=== PATIENT | male | born 1990 | race Caucasian/White ===

== ENCOUNTER 2017-10-11 15:48 | Observation (INO) | payer BC, OTHER ==
--- NOTE | 2017-10-11 16:07 | PDOC ---
Rapid Medical Evaluation Chief Complaint: Pain Time Seen by Provider: 10/11/17 16:04 Medical Evaluation: Allergies Allergy/AdvReac Type Severity Reaction Status Date / Time No Known Allergies Allergy Verified 10/11/17 15:52 Vital Signs Temp Pulse Resp BP Pulse Ox 98.0 F 105 H 18 147/92 100 10/11/17 15:53 10/11/17 15:53 10/11/17 15:53 10/11/17 15:53 10/11/17 15:53 10/11/17 16:05 Pt arrives with complaints of: rt abd pain x 2 days On exam : rt upper quadrant, no rt cva tenderness I have ordered : ua, u cx, cbc, comp , lipase Pt will go to : main ED Discharge Disposition - Diagnosis Right lateral abdominal pain - Referrals - Patient Instructions - Post Discharge Activity
--- NOTE | 2017-10-11 16:15 | PDOC ---
History of Present Illness - General Chief Complaint: Pain Stated Complaint: PAIN Time Seen by Provider: 10/11/17 16:04 - History of Present Illness Initial Comments: 10/11/17 16:34 27yo obese young man who presents with acute onset stabbing, non-radiating RLQ pain that was 8/10 severity earlier this AM, now 4/10. He was USOH, when last night he started to have some RLQ pain, 2/10 severity. This morning his pain was more severe, which was worse with movement and coughing. Denies nausea, vomiting, and was able to eat lunch. Food did not exacerbate or alleviate his pain. Denies any prior episodes. He had an appendectomy when he was 6 years old. No h/o kidney stones. Last BM was this morning, denies hematochezia or BRBPR. Denies fever or chills. 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 Denies heavy EtOH use (drinks only on social occasions). He is an active smoker (2-3cigarettes per day for the past 6 years). Denies drug use. 10/11/17 17:00 Past History - Past Medical History Allergies/Adverse Reactions: Allergies Allergy/AdvReac Type Severity Reaction Status Date / Time No Known Allergies Allergy Verified 10/11/17 15:52 Home Medications: Ambulatory Orders NK [No Known Home Medication] 10/11/17 COPD: No - Surgical History Appendectomy: Yes - Suicide/Smoking/Psychosocial Hx Smoking History: Never smoked Have you smoked in the past 12 months: Yes Number of Cigarettes Smoked Daily: 3 Information on smoking cessation initiated: Yes 'Breaking Loose' booklet given: 10/11/17 Hx Alcohol Use: No Drug/Substance Use Hx: No Substance Use Type: None *Physical Exam - Vital Signs Last Vital Signs Temp Pulse Resp BP Pulse Ox 98.0 F 105 H 18 147/92 100 10/11/17 15:53 10/11/17 15:53 10/11/17 15:53 10/11/17 15:53 10/11/17 15:53 - Physical Exam General Appearance: Yes: Nourished, Appropriately Dressed Respiratory/Chest: positive: Lungs Clear, Normal Breath Sounds Cardiovascular: positive: Regular Rhythm, Regular Rate Gastrointestinal/Abdominal: positive: Normal Bowel Sounds, Soft, Protuberent, Tenderness (RLQ), Other ((-) Tran's) Male Genitalia: positive: normal genitalia, CVAT ((-) CVA tenderness bilaterally , (-) suprapubic tenderness), other ED Treatment Course - LABORATORY CBC & Chemistry Diagram: 10/11/17 16:28 10/11/17 16:28 Medical Decision Making - Medical Decision Making 10/11/17 17:10 Labs pending: UA, CBC, CMP Imaging: CT abdomen/pelvis w/o contrast for r/o renal pathology, including nephrolithiasis or focal inflammation/adhesion at prior appendectomy site., CBC, BMP 10/11/17 16:28 10/11/17 16:28 Urine Test Results Urine Color Yellow 10/11/17 16:28 Urine Appearance Clear 10/11/17 16:28 Urine pH 6.0 (5.0-8.0) 10/11/17 16:28 Ur Specific [place] 1.021 (1.001-1.035) 10/11/17 16:28 Urine Protein Negative (NEGATIVE) 10/11/17 16:28 Urine Glucose (UA) Negative (NEGATIVE) 10/11/17 16:28 Urine Ketones Negative (NEGATIVE) 10/11/17 16:28 Urine Blood Negative (NEGATIVE) 10/11/17 16:28 Urine Nitrite Negative (NEGATIVE) 10/11/17 16:28 Urine Bilirubin Negative (NEGATIVE) 10/11/17 16:28 CT abdomen/pelvis w/o pending. Patient Signed-out to evening resident, Dr. Brown. *DC/Admit/Observation/Transfer Diagnosis at time of Disposition: Right lateral abdominal pain - Referrals Referrals: Dominog Garcia MD [Primary Care Provider] - - Patient Instructions - Post Discharge Activity
[2017-10-11 16:58] LABS: URINE APPEARANCE CLEAR; URINE BILIRUBIN NEGATIVE (NEGATIVE); URINE BLOOD NEGATIVE (NEGATIVE); URINE COLOR YELLOW; URINE GLUCOSE (UA) NEGATIVE (NEGATIVE); URINE KETONE NEGATIVE (NEGATIVE); URINE NITRITE NEGATIVE (NEGATIVE); URINE PROTEIN NEGATIVE (NEGATIVE); URINE UROBILINOGEN 4.0 E.U/dl mg/dL (0.2-1.0)
[2017-10-11 17:00] LABS: BASOPHIL 0.5 % (0-2.0); EOSINOPHIL 1.9 % (0-4.5); MCH 29.3 pg (25.7-33.7); MCHC 34.2 g/dl (32.0-35.9); MEAN CELL VOLUME 85.7 fl (80-96); MEAN PLT VOLUME 7.9 fl (7.5-11.1); NEUTROPHILS 64.7 % (42.8-82.8); PLATELET COUNT 266 K/MM3 (134-434); RDW 12.7 % (11.9-15.9); WHITE BLOOD COUNT 9.8 K/mm3 (4.0-10.0)
[2017-10-11 17:14] LABS: ALBUMIN 4.1 g/dl (3.4-5.0); ALK PHOS 82 U/L (45-117); ANION GAP 7 (8-16); BILIRUBIN,TOTAL 0.6 mg/dL (0.2-1.0); CALCIUM 9.3 mg/dL (8.5-10.1); CO2 27 mmol/L (21-32); CREATININE 0.7 mg/dL (0.7-1.3); GLUCOSE,RANDOM 111 mg/dL (74-106); SGOT/AST 112 U/L (15-37); SGPT/ALT 203 U/L (12-78); TOT PROT 8.1 g/dl (6.4-8.2)
--- NOTE | 2017-10-11 17:19 | PDOC ---
Attending Attestation - HPI HPI: 10/11/17 18:09 The patient is a 27 year old male with a significant PMH of everyday cigarette use who presents to the emergency department with localized RLQ abdominal pain beginning approximately last night. The patient reports the abdominal pain is a stabbing sensation, at a 2/10 last night which has worsened to an 8/10 in severity this morning. The patient denies any prior or family history of gallstones or GI issues. PCP: Dr. Garcia - Physicial Exam PE: 10/11/17 18:09 Vitals: Triage Vital signs reviewed General Appearance: no acute distress, well nourished well developed, Chest Wall: Nontender Cardiac: Regular rate and rhythm, no murmurs, no rubs, no gallops, Lungs: Clear to auscultation bilateral, good air movement bilaterally, Abdomen: (+) RLQ tenderness to palpation. (+) Mild rebound. Soft, nondistended, normal bowel sounds, Extremities: Full range of motion to all extremities, no cyanosis, clubbing, or edema Genital: Normal exam. Skin: Warm and dry, no rashes or lesions, no petechiae Neuro: AOX3; Cranial Nerves 2-12 grossly intact, Strength intact to all extremities, Sensation intact to all extremities, gait normal Psych: normal mood, normal affect <Hector Parra - Last Filed: 10/11/17 18:09> - Resident Resident Name: DanielHannah - ED Attending Attestation I have performed the following: I have examined & evaluated the patient, The case was reviewed & discussed with the resident, I agree w/resident's findings & plan, Exceptions are as noted - Medical Decision Making 10/11/17 17:38 27 years old with right lower quadrant pain past medical history significant for appendicectomy Given the location of pain we'll CT noncontrast labs pain meds and reassess Dr. Edwards to F/U ct and reassess 10/11/17 19:11 <Jae Silva - Last Filed: 10/11/17 19:12>
[2017-10-11] MEDS ORDERED: KETOROLAC TROMETHAMINE 30 MG/1 ML VIAL IVPUSH ONE (17:38)
[2017-10-11] MEDS ORDERED: SODIUM CHLORIDE 0.9% 1000 ML INFUS.BAG IV ONE (17:38)
[2017-10-11] MEDS ORDERED: KETOROLAC TROMETHAMINE 30 MG/1 ML VIAL ONE (17:48)
--- NOTE | 2017-10-11 20:09 | PDOC ---
*Physical Exam - Vital Signs 27 YOM who p/w acute RLQ pain. S/P appendectomy 20 years ago. Afebrile, RLQ ttp , no CVA ttpno elevation in WBC, considering inflammation of appendiceal remnant vs. nephrolithiasis vs. gas pains. Awaiting results of CT abdomen/ pelvis. Last Vital Signs Temp Pulse Resp BP Pulse Ox 98.0 F 105 H 18 147/92 100 10/11/17 15:53 10/11/17 15:53 10/11/17 15:53 10/11/17 15:53 10/11/17 15:53 - Physical Exam General Appearance: Yes: Nourished, Appropriately Dressed, Obese, Other ( pleasant with large group of family and friends at bedside). No: Apparent Distress HEENT: positive: EOMI, MC, Normal Voice, Hearing Grossly Normal. negative: Scleral Icterus (R), Scleral Icterus (L), Nasal Congestion Neck: positive: Trachea midline, Supple. negative: Tender, Rigid Respiratory/Chest: positive: Lungs Clear, Normal Breath Sounds. negative: Respiratory Distress, Crackles, Rhonchi, Stridor, Wheezing Cardiovascular: positive: Regular Rhythm, Regular Rate. negative: Murmur Gastrointestinal/Abdominal: positive: Normal Bowel Sounds, Tender (mild tenderness to palpation to RLQ at Tran's point, negative Rovsing sign), Soft. negative: Organomegaly, Pulsatile Mass, Guarding Musculoskeletal: positive: Normal Inspection, Other (no tenderness to palpation along the iliac crest posteriorly, laterally, and at ASIS or AIIS). negative: CVA Tenderness, Decreased Range of Motion, Vertebral Tenderness Extremity: positive: Normal Capillary Refill, Normal Inspection, Normal Range of Motion. negative: Tender, Cyanosis Integumentary: positive: Normal Color, Dry, Warm. negative: Erythema, Rash, Bruising Neurologic: positive: fourdrinier tender II-XII NML intact (grossly), Fully Oriented, Alert, Normal Mood/Affect, Normal Response, Motor Strength / ED Treatment Course - LABORATORY CBC & Chemistry Diagram: 10/11/17 16:28 10/11/17 16:28 - ADDITIONAL ORDERS Additional order review: Laboratory Results 10/11/17 10/11/17 16:28 16:28 Sodium 137 Potassium 4.2 Chloride 103 Carbon Dioxide 27 Anion Gap 7 L BUN 14 Creatinine 0.7 Creat Clearance w eGFR > 60 Random Glucose 111 H Calcium 9.3 Total Bilirubin 0.6 AST 112 H ALT 203 H Alkaline Phosphatase 82 Total Protein 8.1 Albumin 4.1 Lipase 117 Urine Color Yellow Urine Appearance Clear Urine pH 6.0 Ur Specific [place] 1.021 Urine Protein Negative Urine Glucose (UA) Negative Urine Ketones Negative Urine Blood Negative Urine Nitrite Negative Urine Bilirubin Negative Urine Urobilinogen 4.0 e.u/dl 10/11/17 16:28 RBC 5.29 MCV 85.7 MCHC 34.2 RDW 12.7 MPV 7.9 Neutrophils % 64.7 Lymphocytes % 25.9 Monocytes % 7.0 Eosinophils % 1.9 Basophils % 0.5 - Medications Given in the ED: ED Medications Discontinued Medications Generic Name Dose Route Start Last Admin Trade Name Gail PRN Reason Stop Dose Admin Ketorolac Tromethamine 30 mg 10/11/17 17:38 10/11/17 18:09 Toradol Injection - IVPUSH 10/11/17 17:39 30 mg ONCE ONE Administration Sodium Chloride 1,000 ml 10/11/17 17:38 10/11/17 18:09 Normal Saline - IV 10/11/17 17:39 1,000 ml ONCE ONE Administration Medical Decision Making - Medical Decision Making 27 YOM with h/o distant appendectomy p/w RLQ pain. On CT abdomen/pelvis the only notable finding is hypodense 2x2x1.3cm lesion in right lilac bone. Radiology read with recommendation to further characterize lesion with MRI if patient is symptomatic. Patient re-examined with unchanged RLQ ttp, no CVA ttp, no vertebral ttp or right iliac crest ttp. Patient reluctant but ultimately agreeable to admission for further workup and MRI. Admission procedures carried out by Dr. Orosco per his documentation. *DC/Admit/Observation/Transfer Diagnosis at time of Disposition: RLQ abdominal pain - Referrals Referrals: Domingo Garcia MD [Primary Care Provider] - - Patient Instructions - Post Discharge Activity
[2017-10-11 20:26] LABS: URINE LEUK ESTERASE Negative (NEGATIVE)
--- NOTE | 2017-10-11 21:13 | PDOC ---
*Physical Exam - Vital Signs Last Vital Signs Temp Pulse Resp BP Pulse Ox 98.0 F 105 H 18 147/92 100 10/11/17 15:53 10/11/17 15:53 10/11/17 15:53 10/11/17 15:53 10/11/17 15:53 ED Treatment Course - LABORATORY CBC & Chemistry Diagram: 10/11/17 16:28 10/11/17 16:28 - ADDITIONAL ORDERS Additional order review: Laboratory Results 10/11/17 10/11/17 16:28 16:28 Sodium 137 Potassium 4.2 Chloride 103 Carbon Dioxide 27 Anion Gap 7 L BUN 14 Creatinine 0.7 Creat Clearance w eGFR > 60 Random Glucose 111 H Calcium 9.3 Total Bilirubin 0.6 AST 112 H ALT 203 H Alkaline Phosphatase 82 Total Protein 8.1 Albumin 4.1 Lipase 117 Urine Color Yellow Urine Appearance Clear Urine pH 6.0 Ur Specific [place] 1.021 Urine Protein Negative Urine Glucose (UA) Negative Urine Ketones Negative Urine Blood Negative Urine Nitrite Negative Urine Bilirubin Negative Urine Urobilinogen 4.0 e.u/dl Ur Leukocyte Esterase Negative 10/11/17 16:28 RBC 5.29 MCV 85.7 MCHC 34.2 RDW 12.7 MPV 7.9 Neutrophils % 64.7 Lymphocytes % 25.9 Monocytes % 7.0 Eosinophils % 1.9 Basophils % 0.5 - Medications Given in the ED: ED Medications Discontinued Medications Generic Name Dose Route Start Last Admin Trade Name Freq PRN Reason Stop Dose Admin Ketorolac Tromethamine 30 mg 10/11/17 17:38 10/11/17 18:09 Toradol Injection - IVPUSH 10/11/17 17:39 30 mg ONCE ONE Administration Sodium Chloride 1,000 ml 10/11/17 17:38 10/11/17 18:09 Normal Saline - IV 10/11/17 17:39 1,000 ml ONCE ONE Administration Medical Decision Making - Medical Decision Making 10/11/17 21:08 Pt still having pain to the right lower abdominal region. Pt s/p appy many years ago. Ct scan is shows a hypodensity to the right posterior iliac bone. MR is recommended. *DC/Admit/Observation/Transfer Diagnosis at time of Disposition: RLQ abdominal pain - Discharge Dispostion Condition at time of disposition: Stable Admit: Yes - Referrals Referrals: Domingo Garcia MD [Primary Care Provider] - - Patient Instructions - Post Discharge Activity
[2017-10-11] MEDS ORDERED: ACETAMINOPHEN 325 MG TABLET (FP) PO PRN (23:07)
[2017-10-11] MEDS: D5-1/2NS+20 MEQ KCL - 20 MEQ/1,000 ML INFUS.BAG IV SCH (23:31)
[2017-10-12 02:10] VITALS: BMI 39.2
[2017-10-12 07:29] LABS: BASOPHIL 0.5 % (0-2.0); EOSINOPHIL 2.6 % (0-4.5); MCH 29.5 pg (25.7-33.7); MCHC 34.4 g/dl (32.0-35.9); MEAN CELL VOLUME 85.9 fl (80-96); MEAN PLT VOLUME 7.9 fl (7.5-11.1); NEUTROPHILS 67.2 % (42.8-82.8); PLATELET COUNT 234 K/MM3 (134-434); RDW 12.7 % (11.9-15.9); WHITE BLOOD COUNT 9.2 K/mm3 (4.0-10.0)
[2017-10-12 07:55] LABS: CALCIUM 9.1 mg/dL (8.5-10.1)
[2017-10-12 08:01] LABS: ALBUMIN 3.5 g/dl (3.4-5.0); ALK PHOS 68 U/L (45-117); ANION GAP 5 (8-16); CO2 28 mmol/L (21-32); CREATININE 0.8 mg/dL (0.7-1.3); GLUCOSE,RANDOM 106 mg/dL (74-106); SGOT/AST 93 U/L (15-37); SGPT/ALT 178 U/L (12-78); TOT PROT 6.9 g/dl (6.4-8.2)
[2017-10-12] MEDS ORDERED: PANTOPRAZOLE 40 MG TABLET (FP) PO SCH (10:00)
--- NOTE | 2017-10-12 10:03 | CONSULT ---
Consult - text type - Consultation Consultation Note: FULL CONSULT DICTATED IMP: BENIGN LESION RIGHT ILIAC BONE UNRELATED TO CURRENT RLQ PAIN. WE CAN FOLLOW THIS LESION AN OUT PATIENT
--- NOTE | 2017-10-12 10:06 | HP ---
Admitting History and Physical - Admission History of Present Illness: 27 year old male with a significant PMH of everyday cigarette use who presents to the emergency department with localized RLQ abdominal pain beginning approximately last night. The patient reports the abdominal pain is a stabbing sensation, at a 2/10 last night which has worsened to an 8/10 in severity this morning. The patient denies any prior or family history of gallstones or GI issues. - Past Medical History Cardiovascular: No: HTN, Hyperlipdemia Pulmonary: No: Asthma, COPD Gastrointestinal: No: Constipation Heme/Onc: No: Anemia - Past Surgical History Past Surgical History: Yes: Appendectomy - Smoking History Smoking history: Current every day smoker Have you smoked in the past 12 months: Yes Aproximately how many cigarettes per day: 3 - Alcohol/Substance Use Hx Alcohol Use: No Home Medications - Allergies Allergies/Adverse Reactions: Allergies Allergy/AdvReac Type Severity Reaction Status Date / Time No Known Allergies Allergy Verified 10/11/17 15:52 - Home Medications Home Medications: Ambulatory Orders NK [No Known Home Medication] 10/11/17 Review of Systems - Review of Systems Cardiovascular: denies: Chest Pain Respiratory: denies: SOB Gastrointestinal: reports: Abdominal Pain (rlq) Physical Examination Vital Signs: Vital Signs Temperature 98 F 10/12/17 06:29 Pulse Rate 88 10/12/17 06:29 Respiratory Rate 22 10/12/17 06:29 Blood Pressure 141/86 10/12/17 06:29 O2 Sat by Pulse Oximetry (%) 100 10/12/17 02:18 Cardiovascular: Yes: Regular Rate and Rhythm Respiratory: Yes: Regular, CTA Bilaterally Gastrointestinal: Yes: Normal Bowel Sounds, Soft. No: Tenderness Edema: No Labs: CBC, BMP 10/12/17 06:30 10/12/17 06:30 Problem List - Problems (1) Elevated liver enzymes Assessment/Plan: w/u ordered gi consult surgical consult Code(s): R74.8 - ABNORMAL LEVELS OF OTHER SERUM ENZYMES (2) RLQ abdominal pain Code(s): R10.31 - RIGHT LOWER QUADRANT PAIN (3) Bone anomaly Assessment/Plan: mri of pelvis Code(s): M95.9 - ACQUIRED DEFORMITY OF MUSCULOSKELETAL SYSTEM, UNSPECIFIED
--- NOTE | 2017-10-12 11:23 | CONS ---
DATE OF CONSULTATION: DATE OF DICTATION: 10/12/2017 ORTHOPEDIC CONSULTATION/HEALTH SYSTEM Patient is a 27-year-old male admitted with right lower quadrant abdominal pain and discomfort for the past few days. Patient has had a previous appendectomy. During the patients workup, an abdominal CT scan was performed which showed a benign-looking hypointense lesion in the right posterior iliac wing, and thus necessitated orthopedic consultation. Patient denies any previous trauma or any problems in that region. PHYSICAL EXAMINATION: He does have significant tenderness in the right lower quadrant. He has good range of motion in the ankles and toes, able to walk with no pain, no complaints, no tenderness along his greater trochanter, pubis, ileum, SI joint, sacrum, no limb-length discrepancy, and otherwise neurovascularly intact. X-rays and CT scan were as described in the history. IMPRESSION: Probable benign lesion in his right iliac, posterior iliac wing, which I believe is unrelated to his current situation of right lower quadrant pain. The medical work up the right lower quadrant pain and treat that appropriately. As far as the iliac wing, patient can be discharged when medically cleared. We can follow this lesion up with an MRI and serial x-rays as an outpatient upon discharge. JANETTE GUILLAUME M.D. [id number]
--- NOTE | 2017-10-12 11:42 | CON.GI ---
Consult Consult Specialty:: GI Referred by:: Dr. Garcia Reason for Consultation:: RLQ pain, elevated enzymes - History of Present Illness History of Present Illness: A 27 yom with 2 days of RLQ, stabbing pain of acute onset, unrelated to diet, activity. Appendectomy 20 y. ago. No associated fiver, chills, nausea, vomiting , dysphagia, odynophagia, GERD, dyspepsia, changes on bowels, melena, hematochezia, hematemesis, weight loss. No prior GI issues. No family history of IBD, early colorectal cancer, polyps. CT abdomen/pelvis negative for GI pathology. A bone lesion was noted and addressed (see chart). - History Source History Provided By: Patient, Medical Record - Past Surgical History Past Surgical History: Yes: Appendectomy - Alcohol/Substance Use Hx Alcohol Use: No - Smoking History Smoking history: Current every day smoker Have you smoked in the past 12 months: Yes Aproximately how many cigarettes per day: 3 Home Medications - Allergies Allergies/Adverse Reactions: Allergies Allergy/AdvReac Type Severity Reaction Status Date / Time No Known Allergies Allergy Verified 10/11/17 15:52 - Home Medications Home Medications: Ambulatory Orders NK [No Known Home Medication] 10/11/17 Family Disease History - Family Disease History Family History: Unremarkable Review of Systems Findings/Remarks: please refer to H&P Physical Exam-GI Vital Signs: Vital Signs Temperature 98 F 10/12/17 06:29 Pulse Rate 88 10/12/17 06:29 Respiratory Rate 22 10/12/17 09:00 Blood Pressure 141/86 10/12/17 06:29 O2 Sat by Pulse Oximetry (%) 100 10/12/17 09:00 Constitutional: Yes: Well Nourished, No Distress, Calm, Obese Eyes: Yes: Conjunctiva Clear HENT: Yes: Atraumatic Neck: Yes: Supple Cardiovascular: Yes: Regular Rate and Rhythm Respiratory: Yes: Regular ...Auscultate: Yes: Normoactive Bowel Sounds ...Palpate: Yes: Tenderness (RLQ). No: Firm/Rigid, Guarding, Tenderness, Epigastium, Tenderness, Rebound Integumentary: No: Jaundice Neurological: Yes: Alert, Oriented Labs: CBC, BMP 10/12/17 06:30 10/12/17 06:30 Laboratory Results - last 24 hr 10/11/17 10/11/17 10/11/17 16:28 16:28 16:28 WBC 9.8 RBC 5.29 Hgb 15.5 Hct 45.4 MCV 85.7 MCH 29.3 MCHC 34.2 RDW 12.7 Plt Count 266 MPV 7.9 Neutrophils % 64.7 Lymphocytes % 25.9 Monocytes % 7.0 Eosinophils % 1.9 Basophils % 0.5 Sodium 137 Potassium 4.2 Chloride 103 Carbon Dioxide 27 Anion Gap 7 L BUN 14 Creatinine 0.7 Creat Clearance w eGFR > 60 Random Glucose 111 H Calcium 9.3 Ferritin Total Bilirubin 0.6 AST 112 H ALT 203 H Alkaline Phosphatase 82 Total Protein 8.1 Albumin 4.1 Lipase 117 Urine Color Yellow Urine Appearance Clear Urine pH 6.0 Ur Specific [place] 1.021 Urine Protein Negative Urine Glucose (UA) Negative Urine Ketones Negative Urine Blood Negative Urine Nitrite Negative Urine Bilirubin Negative Urine Urobilinogen 4.0 e.u/dl Ur Leukocyte Esterase Negative 10/12/17 10/12/17 10/12/17 01:20 06:30 06:30 WBC 9.2 RBC 4.84 Hgb 14.3 Hct 41.6 MCV 85.9 MCH 29.5 MCHC 34.4 RDW 12.7 Plt Count 234 MPV 7.9 Neutrophils % 67.2 Lymphocytes % 21.3 Monocytes % 8.4 Eosinophils % 2.6 Basophils % 0.5 Sodium 138 Potassium 4.2 Chloride 105 Carbon Dioxide 28 Anion Gap 5 L BUN 14 Creatinine 0.8 Creat Clearance w eGFR > 60 Random Glucose 106 Calcium 9.1 Ferritin 339.593 H Total Bilirubin 1.0 D AST 93 H ALT 178 H Alkaline Phosphatase 68 Total Protein 6.9 Albumin 3.5 Lipase Urine Color Urine Appearance Urine pH Ur Specific [place] Urine Protein Urine Glucose (UA) Urine Ketones Urine Blood Urine Nitrite Urine Bilirubin Urine Urobilinogen Ur Leukocyte Esterase Imaging - Results Cat Scan: Report Reviewed Problem List - Problems (1) Elevated liver enzymes Code(s): R74.8 - ABNORMAL LEVELS OF OTHER SERUM ENZYMES Assessment/Plan Acute onset. RLQ pain and tenderness with normal CT w/o contrast. Unrelated to physical activity, diet. No obvious, overt signs of infection, inflammation. Doubt IBD, infection, inflammation. Elevated transaminases with predominant ALT. Obese. Likely NAFLD/SHANKS. Agree with viral profile, fibrosure, HAV IgG. Would also obtain autoimmune liver markers, which can me done as OP. The patient can be D/C'd from GI perspective and follow up in office next week for liver-related blood work and RLQ pain. Discussed with the patient
--- NOTE | 2017-10-12 12:09 | EKG ---
Test Reason : Blood Pressure : / mmHG Vent. Rate : 069 BPM Atrial Rate : 069 BPM P-R Int : 142 ms QRS Dur : 084 ms QT Int : 382 ms P-R-T Axes : 047 047 009 degrees QTc Int : 409 ms NORMAL SINUS RHYTHM WITH SINUS ARRHYTHMIA CANNOT RULE OUT INFERIOR INFARCT , AGE UNDETERMINED ABNORMAL ECG NO PREVIOUS ECGS AVAILABLE Confirmed by DORIE ANGUIANO MD ([id number]) on 10/12/2017 12:09:20 PM Referred By: Confirmed By:DORIE ANGUIANO MD
[2017-10-12] MEDS: D5-1/2NS+20 MEQ KCL - 20 MEQ/1,000 ML INFUS.BAG IV SCH (12:17)
[2017-10-12 14:00] VITALS: BP 139/74; PULSE 92; TEMP 98.9
--- NOTE | 2017-10-12 18:43 | DS ---
Physical Examination Vital Signs: Vital Signs Temperature 98.9 F 10/12/17 13:59 Pulse Rate 92 H 10/12/17 13:59 Respiratory Rate 18 10/12/17 13:59 Blood Pressure 139/74 10/12/17 13:59 O2 Sat by Pulse Oximetry (%) 100 10/12/17 09:00 Labs: CBC, BMP 10/12/17 06:30 10/12/17 06:30 Discharge Summary Reason For Visit: RIGHT LOWER QUADRANT ABDOMINAL PAIN Current Active Problems Bone anomaly (Acute) Elevated liver enzymes (Acute) RLQ abdominal pain (Acute) Condition: Improved - Instructions Referrals: Domingo Garcia MD [Primary Care Provider] - 1 Week Disposition: HOME - Home Medications Comprehensive Discharge Medication List: Ambulatory Orders Meloxicam [Mobic] 15 mg PO DAILY #7 tablet 10/12/17
[2017-10-14 14:08] LABS: FIBROSURE ASH COMMENT SEE FILE COPY
[2017-10-18 08:07] LABS: ALPHA 2 MACROGLOBULINS,QN 358 mg/dL (110-276); BILIRUBIN TOTAL 0.3 mg/dL (0.0-1.2); FIBROSIS STAGE F1-F2 (.); GGT= 66 IU/L (0-65); GLUCOSE SERUM 105 mg/dL (65-99); HAPTOGLOBIN= 175 mg/dL (34-200); HEIGHT 66 Inches (.); TRIGLYCERIDES= 454 mg/dL (0-149)
== END 2017-10-12 19:16 | disposition home or self-care (01) ==
LOC: JER 15:48 → JERBED 22:00 → UNDOADMOB 22:00 → INTOOBSV 22:00 → JERBED 10-12 00:24 → J6S 10-12 00:24 → JERBED 10-12 15:20 → J6S 10-12 16:06
PROVIDERS: ADMIT Family Medicine; ATTEND Family Medicine
PROC: 3E033GC Introduction of Other Therapeutic Substance into Peripheral Vein, Percutaneous Approach (ICD-10-PCS; principal; 2017-10-12)
PROC: 3E0337Z Introduction of Electrolytic and Water Balance Substance into Peripheral Vein, Percutaneous Approach (ICD-10-PCS; 2017-10-12)
DX: R10.31 Right lower quadrant pain (principal); R74.8 Abnormal levels of other serum enzymes; M95.9 Acquired deformity of musculoskeletal system, unspecified; F17.210 Nicotine dependence, cigarettes, uncomplicated; M89.9 Disorder of bone, unspecified; E66.9 Obesity, unspecified; Z68.39 Body mass index [BMI] 39.0-39.9, adult
CPT/HCPCS: 36415; 74176-TC; 80053; 80074; 81003; 82172; 82247; 82465; 82728; 82947; 82977; 83010; 83690; 83883; 84450; 84460; 84478; 85025; 85651; 86140; 87086; 93005; 93010; 99283-25; G0378

== ENCOUNTER 2021-12-15 11:47 | Emergency (ER) | payer BC ==
[2021-12-15 12:02] VITALS: BMI 31.6
[2021-12-15] MEDS ORDERED: ASPIRIN 81 MG CHEWABLE TABLETS PO ONE (12:30)
[2021-12-15] MEDS ORDERED: ASPIRIN 81 MG CHEWABLE TABLETS ONE (13:52)
[2021-12-15 15:21] LABS: BASO % 0.6 % (0-2.0); EOS % 1.3 % (0-4.5); HEMATOCRIT 43.4 % (35.4-49); HEMOGLOBIN 14.5 GM/dL (11.7-16.9); LYMPH % 17.6 % (8-40); MCH 28.9 pg (25.7-33.7); MCHC 33.5 g/dl (32.0-35.9); MEAN CELL VOLUME 86.2 fl (80-96); MEAN PLT VOLUME 7.9 fl (7.5-11.1); MONO % 12.1 % (3.8-10.2); NEUT % 68.4 % (42.8-82.8); PLATELET COUNT 238 10^3/uL (134-434); RBC 5.03 M/mm3 (4.00-5.60); RDW 13.3 % (11.9-15.9); WHITE BLOOD COUNT 4.7 K/mm3 (4.0-10.0)
[2021-12-15 15:27] LABS: URINE APPEARANCE CLEAR; URINE BILIRUBIN NEGATIVE (NEGATIVE); URINE COLOR YELLOW; URINE GLUCOSE (UA) NEGATIVE (NEGATIVE); URINE KETONE NEGATIVE (NEGATIVE); URINE LEUK ESTERASE NEGATIVE (NEGATIVE); URINE NITRITE NEGATIVE (NEGATIVE); URINE PROTEIN NEGATIVE (NEGATIVE)
[2021-12-15 15:38] LABS: CHLORIDE 103 mmol/L (98-107); SODIUM 138 mmol/L (136-145)
[2021-12-15 15:40] LABS: ALBUMIN 4.1 g/dl (3.4-5.0); ANION GAP 6 MMOL/L (8-16); BLOOD UREA NITROGEN 13.8 mg/dL (7-18); CALCIUM 9.3 mg/dL (8.5-10.1); CO2 29 mmol/L (21-32)
[2021-12-15 15:41] LABS: GLUCOSE,RANDOM 79 mg/dL (74-106)
[2021-12-15 15:43] LABS: CREATININE 0.8 mg/dL (0.55-1.3); SGPT/ALT 24 U/L (13-61)
[2021-12-15 15:44] LABS: SGOT/AST 19 U/L (15-37)
[2021-12-15 15:45] LABS: BILIRUBIN,TOTAL 0.9 mg/dL (0.2-1); TOT PROT 7.7 g/dl (6.4-8.2)
[2021-12-15 15:46] LABS: ALK PHOS 67 U/L (45-117)
[2021-12-15 17:04] VITALS: BP 121/71; PULSE 69; TEMP 98
== END 2021-12-15 16:04 | disposition home or self-care (01) ==
LOC: JER 11:47
DX: B34.9 Viral infection, unspecified (principal)
CPT/HCPCS: 36415; 71046-TC-FY; 80053; 81003; 82550; 82553; 83735; 84484; 85025; 93005; 93010; 99285-25; C9803; U0003; U0005